=== PATIENT | female | born 1950 | race Caucasian/White ===

== ENCOUNTER 2018-07-17 10:31 | Outpatient (CLI) | payer OTHER ==
[~2018-07-17 10:31] MED LIST: IOPAMIDOL-300 100 ML VIAL ONE
[2018-07-17] MEDS ORDERED: IOPAMIDOL-300 100 ML VIAL IVP ONE (11:11)
--- NOTE | 2018-07-21 23:34 | CT Report ---
Reason: RECURRING COUGH Procedure Date: 07/17/2018 Accession Number: [id number] / [id number] Procedure: CT - Chest W/ CPT Code: FULL RESULT: EXAM: CT CHEST WITH CONTRAST EXAM DATE: 07/17/2018 11:10 AM. CLINICAL HISTORY: Cough COMPARISONS: None. TECHNIQUE: Routine helical CT imaging was performed through the chest. IV contrast: 100 mm Isovue 300. Reconstructions: Coronal and sagittal. Coronal MIP reconstructions also performed In accordance with CT protocol optimization, one or more of the following dose reduction techniques were utilized for this exam: automated exposure control, adjustment of mA and/or KV based on patient size, or use of iterative reconstructive technique. FINDINGS: Lungs/Pleura: No mass, consolidation, edema, pleural effusion or pneumothorax. Central airways are patent. No significant bronchial wall thickening. There are a few scattered benign punctate calcified granulomata (for example right lower lobe series 4 image 35). Mediastinum: Normal heart size. Mild coronary artery calcifications predominating in the left main and LAD. Great vessels are normal in course and caliber. Trace calcific atherosclerosis at the arch with normal aortic arch branch pattern. No filling defect of the central pulmonary arteries. No mass or adenopathy. Bones: Mild degenerative thoracic spondylosis. No acute osseous abnormality or suspicious focal osseous lesion. Visualized Abdomen: Hepatic steatosis post cholecystectomy. Other: Lower thyroid is either diminutive or absent. No abnormally enlarged axillary, supraclavicular or internal mammary lymph nodes. IMPRESSION: 1. No acute cardiopulmonary abnormality. Specifically no cause for cough demonstrated. 2. Evidence of remote benign granulomatous disease. 3. Hepatic steatosis and additional findings as above. [facility]
== END 2018-07-17 10:32 | disposition home or self-care (01) ==
LOC: DI 10:31
PROVIDERS: ATTEND Nurse Practitioner Acute Care
DX: R05 Cough (principal)
CPT/HCPCS: 71260; Q9967

== ENCOUNTER → 2022-09-18 | Outpatient (CLI) | payer OTHER | END | disposition short-term general hospital (02) | LOC: EMS 05:32 | DX: R07.9 Chest pain, unspecified (principal) | CPT/HCPCS: A0425; A0429 ==

== ENCOUNTER 2022-09-26 10:06 | Outpatient (CLI) | payer OTHER, MEDICARE | END 2022-09-26 10:07 | disposition short-term general hospital (02) | LOC: EMS 10:06 | DX: R07.89 Other chest pain (principal); R05.9 Cough, unspecified | CPT/HCPCS: A0425; A0427 ==

== ENCOUNTER 2022-10-15 08:00 | Outpatient (CLI) | payer OTHER, MEDICARE ==
[2022-10-15 19:45] LABS: ABSOLUTE RETICS # AUTO 0.13 10^6/uL (0.020-0.110); RED BLOOD COUNT 3.52 10^6/uL (4.20-5.40); RETICULOCYTE COUNT % (AUTO) 3.7 % (0.5-2.3)
[2022-10-15 20:38] LABS: POTASSIUM 3.8 mmol/L (3.5-5.0)
== END 2022-10-15 23:59 | disposition home or self-care (01) ==
LOC: LAB.R 08:00
DX: I10 Essential (primary) hypertension (principal); D64.9 Anemia, unspecified
CPT/HCPCS: 80048; 83540; 84466; 85045